=== PATIENT | male | born 1945 | race Caucasian/White ===

== ENCOUNTER 2018-03-14 13:28 | Observation (INO) ==
--- NOTE | 2018-03-14 13:34 | Emergency Department Note ---
Disposition Clinical Impression: Stroke syndrome Disposition: Admitted As Inpatient Condition: Good Referrals: Aquilino Mcclelland MD [Primary Care Provider] - Forms: ED Satisfaction Letter Time of Disposition: 15:00 Neuro HPI - General Chief Complaint: ED General Medical Stated Complaint: numbness to lt arm and side of face, onset 2 days Time Seen by Provider: 03/14/18 13:32 Source: patient, family Mode of arrival: private vehicle Limitations: no limitations Nursing Notes Reviewed: Yes Vital Signs Reviewed: Yes - History of Present Illness HPI Narrative: Patient relates that he has had onset of some tingling and numbness in his left face and left arm sometime on Sunday. States he did have a fall onto his back on Sunday but that he did not hit his head. He states he merely tripped. He is continued with constant dysesthesia to the arm and face but is not extended anywhere to the torso or lower extremities. He denies any problem like this before. Denies alteration in vision, speech, thought or balance. He denies any lower extremity complaints other than his chronic neuropathy. He denies headache, nausea or vomiting. Denies chest pain, palpitations or any abnormal shortness of breath. He states he always has some shortness of breath with his COPD. He denies significant change in medicines other than he had an increase of his Trulicity. He states his blood sugars have been in the 100s to low 200s and that that is good for him. He is on an aspirin a day but denies any other anticoagulants. Denies any previous episodes of a type of stroke or TIA. He has not had any previous vascular/carotid exam in the past. Symptom Onset Unknown: No Timing confirmed by: family member Location: left face, left arm History of same: No Severity: mild Quality: tingling, constant Symptoms Improving: No Improves with: none Worsens with: none Context: gradual onset On Anticoagulants: No Associated symptoms: Denies: confusion, chest pain, cough, diaphoresis, fever/ chills, headaches, loss of appetite, malaise, nausea/vomiting, vertigo, seizures , shortness of breath, syncope, weakness Treatments Prior to Arrival: none - Related Data Home Medications: Home Medications Medication Instructions Recorded Confirmed Losartan [Cozaar] 25 mg PO DAILY 10/16/16 03/14/18 Albuterol Sulfate [Ventolin Hfa] 18 gm IH BID 03/14/18 03/14/18 Aspirin [Adult Aspirin Regimen] 81 mg PO DAILY 03/14/18 03/14/18 Budesonide/Formoterol 160/4.5 2 puff IH BIDR 03/14/18 03/14/18 [Symbicort 160/4.5] Cholecalciferol (Vitamin D3) 50,000 unit PO QWEEK 03/14/18 03/14/18 [Vitamin D] Dulaglutide [Trulicity] 1.5 mg SQ QWEEK 03/14/18 03/14/18 Gabapentin [Neurontin] 800 mg PO TID 03/14/18 03/14/18 GlipiZIDE XL (24 HR) [Glucotrol XL] 10 mg PO BID 03/14/18 03/14/18 Hydrocodone/Acetaminophen 1 each PO Q6H PRN 03/14/18 03/14/18 [Hydrocodon-Acetaminophen 5-325] Insulin Glargine [Lantus] 95 unit SQ DAILY 03/14/18 03/14/18 Isosorbide MONOnitrate (24 HR) 60 mg PO DAILY 03/14/18 03/14/18 [Imdur] Omeprazole [PriLOSEC] 40 mg PO DAILY 03/14/18 03/14/18 Simvastatin [Zocor] 40 mg PO HS 03/14/18 03/14/18 metFORMIN [Glucophage] 1,000 mg PO BIDWM 03/14/18 03/14/18 Previous Rx's Medication Instructions Recorded Levothyroxine [Synthroid] 50 mcg PO DAILY #30 tablet 05/20/17 Allergies/Adverse Reactions: Allergies Allergy/AdvReac Type Severity Reaction Status Date / Time niacin AdvReac Cramping Verified 03/14/18 13:30 of the Muscles All systems ED: reviewed and negative except as stated. Past Medical History - Past Medical History Attestation: Yes The following information was validated with the patient. Source: patient, obtained from family, nursing notes reviewed Medical history: Reports: COPD, diabetes, GERD (Hiatal hernia), hyperlipidemia, hypertension, thyroid disease (Hypothyroid), other (Elevated BMI, anemia, blind in the right eye, chronic low back pain) Surgical history: Reports: cataract, knee replacement (Bilateral), orthopedic, other (Carpal tunnel and trigger finger releases) Psychiatric history: Reports: no psych history - Social History Smoking Status: Never smoker Smokeless Tobacco Status: No Alcohol use: Reports: none Drug use: Reports: none Physical Exam - General Limitations: no limitations General appearance: alert, in no apparent distress - Head Head exam: atraumatic, normocephalic, normal inspection - Eye Eye exam: Present: normal appearance, PERRL, EOMI. Absent: conjunctival injection, nystagmus, miosis, mydriasis - ENT ENT exam: normal exam, normal oropharynx, mucous membranes moist - Neck Neck exam: Present: normal inspection, full ROM, trachea midline - Chest Chest inspection: Present: normal inspection, symmetric chest wall rise - Respiratory Respiratory exam: Present: normal lung sounds bilaterally. Absent: respiratory distress, wheezes, prolonged expiratory phase - Cardiovascular Cardiovascular exam: Present: regular rate, normal rhythm, normal heart sounds. Absent: tachycardia - Abdominal Exam Abdominal exam: Present: soft, Non-Tender, normal bowel sounds. Absent: tenderness, distention, guarding, rebound, rigidity - Extremities Exam Extremities exam: Present: normal inspection, full ROM, normal capillary refill. Absent: tenderness, pedal edema, calf tenderness - Expanded Lower Extremity Exam Neurovascular/Tendon exam: Present: normal capillary refill. Absent: motor deficit, sensory deficit, tendon deficit Gait: observed and normal - Back Exam Back exam: Present: normal inspection, full ROM. Absent: tenderness - Neurological Exam Neurological exam: Present: alert, oriented X3, CN II-XII intact, normal gait, reflexes normal. Absent: motor sensory deficit (Patient has equal strength and rapid alternating motion with his hands. He does not have a pronator drift positive. He does report a dysesthesia to his left face and left arm.) - Psychiatric Psychiatric exam: Present: normal affect, normal mood. Absent: agitated, anxious - Skin Skin exam: Present: warm, dry, intact, normal color. Absent: diaphoresis, pallor Course Course Narrative: 1500: All testing is been discussed with the patient and family. He is agreeable to observation at this facility for further testing. I have discussed care with Dr. Soriano like him started on Plavix a day in addition to his aspirin. Verbal orders have been obtained for his observation and orders for echocardiogram and carotid Dopplers have been entered. Patient remains in stable condition without any further neurologic complaints or findings. Vital Signs Temperature 98.3 F 08/30/18 13:33 Pulse Rate 76 03/14/18 13:33 Respiratory Rate 18 03/14/18 13:33 Blood Pressure 136/71 03/14/18 13:33 O2 Sat by Pulse Oximetry 95 03/14/18 13:33 Temperature 98.3 F 03/14/18 13:33 Pulse Rate 66 03/14/18 14:44 Respiratory Rate 18 03/14/18 14:44 Blood Pressure 134/72 03/14/18 14:44 O2 Sat by Pulse Oximetry 95 03/14/18 14:44 Oxygen Delivery Oxygen Delivery Room Air Neuro Symptoms/Deficit - Differential Diagnosis Likely: cerebrovascular accident - Medical Records Medical records reviewed: Yes I reviewed the patient's medical records. - Lab Data Lab results reviewed: Yes I reviewed the patient's lab results. Result diagrams: 03/14/18 13:46 03/14/18 13:46 Lab Results 03/14/18 03/14/18 03/14/18 Range/Units 13:46 13:46 13:46 WBC 8.0 (4.3-11.1) K/mcL RBC 4.18 L (4.19-5.50) M/mcL Hgb 9.9 L (12.9-16.9) g/dL Hct 31.9 L (37.5-50.1) % MCV 76.3 L (83.0-100.0) fL MCH 23.7 L (28.0-33.3) pg MCHC 31.0 L (31.6-35.5) g/dL RDW 17.2 H (11.5-14.5) % Plt Count 185 (140-400) K/mcL MPV 10.4 (9.4-12.4) fL Immature Gran % 0.7 (0-4) % Seg Neutrophils % 67.0 % Lymphocytes % 22.4 % Monocytes % 7.2 % Eosinophils % 2.1 % Basophils % 0.6 % Neutrophils # 5.4 (1.6-8.9) K/mcL Lymphocytes # 1.8 (0.6-4.6) K/mcL Monocytes # 0.6 (0.0-1.3) K/mcL Eosinophils # 0.2 (0.0-0.6) K/mcL Basophils # 0.1 (0.0-0.2) K/mcL PT 11.4 (9.4-12.1) Seconds INR 1.0 APTT 28.6 (26.0-36.0) Seconds Sodium 134 L (136-145) mEq/L Potassium 4.0 (3.5-5.1) mEq/L Chloride 101 (98-107) mEq/L Carbon Dioxide 26 (23-29) mEq/L BUN 13 (8-23) mg/dL Creatinine 1.30 (0.70-1.30) mg/dL Est GFR ( Amer) > 60 (> 60) Est GFR (Non-Af Amer) 54 L (> 60) BUN/Creatinine Ratio 10 (6-26) Glucose 229 H (70-105) mg/dL Calculated Osmolality 285 (280-300) Calcium 8.9 (8.6-10.3) mg/dL Troponin I < 0.03 (< 0.04) ng/mL - Radiology Data Radiology results reviewed: Yes I reviewed the patient's radiology results. CT head is performed. This is reviewed on bone and soft tissue windows. There is no evidence for acute intracranial bleed, shift, mass or edema. Mastoids and sinuses appear normal. There is no fracture evident. This is on my interpretation. Impressions Head CT 03/14/18 13:33 IMPRESSION: No acute intracranial abnormality. D/ / Domonique Hardy MD / Domonique Hardy MD Interpreting Provider: Domonique Hardy MD - EKG Data EKG attestation: Yes I reviewed and interpreted this EKG. EKG shows normal: sinus rhythm, axis, intervals, QRS complexes Rate: normal (74) Q waves: v3, v4, v5, v6 T wave inversions noted in: v1, v2, v3 Interpretation: other (Lateral ST and T-wave changes concerning for ischemia and this is new from 05/20/2017.) TPA Checklist - LKW: 3-4.5 hrs Add. Warnings/Precautions Patient/family understanding: The patient/family members have been counseled and understood the risk, benefit , and alternatives of treatment.
[2018-03-14 13:55] LABS: Basophils # 0.1 K/mcL (0.0-0.2); Basophils % 0.6 %; Eosinophils # 0.2 K/mcL (0.0-0.6); Eosinophils % 2.1 %; Hematocrit 31.9 % (37.5-50.1); Hemoglobin 9.9 g/dL (12.9-16.9); Immature Granulocytes % 0.7 % (0-4); Lymphocytes # 1.8 K/mcL (0.6-4.6); Lymphocytes % 22.4 %; Mean Corpuscular Hemoglobin 23.7 pg (28.0-33.3); Mean Corpuscular Volume 76.3 fL (83.0-100.0); Mean Platelet Volume 10.4 fL (9.4-12.4); Monocytes # 0.6 K/mcL (0.0-1.3); Monocytes % 7.2 %; Neutrophils # 5.4 K/mcL (1.6-8.9); Platelet Count 185 K/mcL (140-400); Red Blood Count 4.18 M/mcL (4.19-5.50); Red Cell Distribution Width 17.2 % (11.5-14.5)
[2018-03-14 14:01] LABS: Prothrombin Time 11.4 Seconds (9.4-12.1)
[2018-03-14 14:04] LABS: Activated Partial Thrombo Time 28.6 Seconds (26.0-36.0)
[2018-03-14 14:09] LABS: BUN/Creatinine Ratio 10 (6-26); Blood Urea Nitrogen 13 mg/dL (8-23); Calcium 8.9 mg/dL (8.6-10.3); Carbon Dioxide 26 mEq/L (23-29); Chloride 101 mEq/L (98-107); Glucose 229 mg/dL (70-105); Osmolality,Calculated 285 (280-300); Sodium 134 mEq/L (136-145); eGFR For Non-African Americans 54 (> 60)
[2018-03-14 14:13] LABS: Troponin I < 0.03 ng/mL (< 0.04)
[2018-03-14] MEDS ORDERED: Naloxone 0.4 MG/ML INJ IVP PRN (16:03)
[2018-03-14] MEDS ORDERED: Dextrose Gel 15 GM/37.5 ML TUBE PO PRN ×2 (16:03)
[2018-03-14] MEDS ORDERED: *HR* Dextrose 50 % in Water (Syg) 50 ML SYRINGE IVP PRN (16:03)
[2018-03-14] MEDS ORDERED: *HR* HYDROcodone/Acet 5/325 mg TABLET PO PRN (16:03)
[2018-03-14] MEDS ORDERED: D5% in Water 1,000 ML IVC PRN (16:03)
[2018-03-14] MEDS: *HR* Metformin 500 MG TABLET PO SCH (17:22)
[2018-03-14] MEDS: Insulin LISPRO 300 UNITS/3 ML VIAL SQ SCH (17:23)
[2018-03-14] MEDS: Gabapentin 400 MG CAPSULE PO SCH ×2 (17:58→21:56)
--- NOTE | 2018-03-14 20:32 | Internal Med History&Physical ---
Date of Encounter: 03/14/18 Time of Encounter: 19:55 Assessment and Plan (1) Acute focal neurological deficit Current visit: Yes Status: Acute Head CT unremarkable. Echocardiogram and carotid Doppler studies were ordered through emergency room. He has been started on Plavix in addition to home dose aspirin 81 mg daily. (2) CKD (chronic kidney disease) stage 3, GFR 30-59 ml/min Current visit: Yes Status: Acute Monitor renal indices as needed (3) Microcytic anemia Current visit: Yes Status: Acute Order anemia testing in a.m. (4) DM type 2 (diabetes mellitus, type 2) Current visit: Yes Status: Acute Hemoglobin A1c was 9.6% on 09/20/2017. Recheck in a.m. Continue Glucophage and Glucotrol. 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 insulin use: without long term care administrator use Diabetes mellitus complication status: with kidney complications Diabetes mellitus complication detail: with chronic kidney disease Chronic kidney disease stage : stage 3 (moderate) Qualified Code(s): E11.22 - Type 2 diabetes mellitus with diabetic chronic kidney disease; N18.3 - Chronic kidney disease, stage 3 ( moderate) (5) Hypertension Current visit: Yes Status: Chronic Continue Cozaar Qualifiers: Hypertension type: essential hypertension Qualified Code(s): I10 - Essential (primary) hypertension (6) Hypothyroidism Current visit: Yes Status: Chronic TSH was 3.455 on 11/10/2017. Recheck in a.m. Qualifiers: Hypothyroidism type: unspecified Qualified Code(s): E03.9 - Hypothyroidism , unspecified Internal Medicine - H&P: HPI Chief complaint: Left face and arm numbness Admitted From: Emergency Dept Plans for Post Hospital Care: Home History of present illness: Mr. Poole is a 72 year old male who came to emergency room stating he had developed numbness in his left face and arm onset March 12. It had been almost constant since onset with no worsening during activity. He did not take medication other than his usual prescribed regimen. When he did not did not improve he became concerned so came to emergency room today. He was evaluated and admitted to [facility] floor for ongoing care needs. He denies previous similar episodes. He denies pain. Neurologic history is pertinent for diabetic peripheral neuropathy. He denies large distribution strokes, seizures, migraine headaches, or syncopal episodes. Past Med Surg Social Fam HX - Past Medical History Medical history: COPD, diabetes, GERD (Hiatal hernia), hyperlipidemia, hypertension, thyroid disease (Hypothyroid), other (Elevated BMI, anemia, blind in the right eye, chronic low back pain) Additional medical history: vertigo. bells palsy. neuropathy Psychiatric history: no psych history - Past Surgical History Surgical History: cataract, knee replacement (Bilateral), orthopedic, other ( Carpal tunnel and trigger finger releases) Additional surgical history: Bilat total knee replacement. Trigger finger 3 fingers. Right carpal tunnel - Social History Smoking Status: Never smoker Smokeless Tobacco Status: No Alcohol use: none Drug use: none Internal Medicine - H&P: Meds Losartan [Cozaar] 25 mg PO DAILY 10/16/16 [History] Levothyroxine [Synthroid] 50 mcg PO DAILY #30 tablet 05/20/17 [Rx] Albuterol Sulfate [Ventolin Hfa] 18 gm IH BID 03/14/18 [History] Aspirin [Adult Aspirin Regimen] 81 mg PO DAILY 03/14/18 [History] Budesonide/Formoterol 160/4.5 [Symbicort 160/4.5] 2 puff IH BIDR 03/14/18 [ History] Cholecalciferol (Vitamin D3) [Vitamin D] 50,000 unit PO QWEEK 03/14/18 [History] Dulaglutide [Trulicity] 1.5 mg SQ QWEEK 03/14/18 [History] Gabapentin [Neurontin] 800 mg PO TID 03/14/18 [History] GlipiZIDE XL (24 HR) [Glucotrol XL] 10 mg PO BID 03/14/18 [History] Hydrocodone/Acetaminophen [Hydrocodon-Acetaminophen 5-325] 1 each PO Q6H PRN [History] Insulin Glargine [Lantus] 95 unit SQ DAILY 03/14/18 [History] Isosorbide MONOnitrate (24 HR) [Imdur] 60 mg PO DAILY 03/14/18 [History] Omeprazole [PriLOSEC] 40 mg PO DAILY 03/14/18 [History] Simvastatin [Zocor] 40 mg PO HS 03/14/18 [History] metFORMIN [Glucophage] 1,000 mg PO BIDWM 03/14/18 [History] 3 Allergy/AdvReac Type Severity Reaction Status Date / Time niacin AdvReac Cramping Verified 03/14/18 13:30 of the Muscles All Systems PM: A 10-system review of systems was performed and is negative for pertinent findings except as documented above in the HPI. Review of systems: Gen.: He states his weight has been stable the past few months Cardiovascular: He has history of hypertension. He denies CO heart failure angina DVT or pulmonary embolus. Echocardiogram 02/02/2016 showed LVEF 60% with no significant valvular dysfunction. The interventricular septum and posterior wall thickness measurements were 1.40 and 1.10 cm respectively. There was slight LAE at 4.10 cm. Respiratory: He smoked from approximately age [age] up to 2 packs per day. He claims diagnosis of COPD although PFTs October 2017 showed FEV1/FVC of 76%. FVC was 82%. MVV was 61%. He does not use home oxygen. He was diagnosed with UNA but states he could not tolerate CPAP which was ordered. GI: He denies disorders of his liver gallbladder or exocrine pancreas. Reports EGD and colonoscopy done several years ago did not show significant pathology. : He has chronic kidney disease stage III and follows with a [facility] attendant. He denies other kidney bladder or prostate disorders. Neurologic: As per history of present illness Endocrine: He was diagnosed with DM 2 approximately 2008. He has hyperlipidemia and hypothyroidism. Hematology/oncology: He denies blood disorders or cancers. He has had anemia with iron deficiency in the past. Psychiatric: He denies anxiety depression or other mental health issues. [place] skeletal: He has had remote bilateral total knee replacements and trigger finger surgery on several fingers of his right hand. He has chronic low back pain. - Constitutional Vitals: Temp Pulse Resp BP Pulse Ox 97.7 F 71 15 140/75 95 03/14/18 18:39 03/14/18 18:39 03/14/18 18:39 03/14/18 18:39 03/14/18 18:39 Exam: Gen.: He is a well-developed obese male lying in bed who appears in no acute distress at present time. HEENT: Head is atraumatic and normocephalic. Eyes: EOMI. There is no scleral icterus. Mouth: Mucosa is moist. Neck: Supple and nontender. There is no thyromegaly or adenopathy noted. Heart: Regular without murmurs gallops or ectopics. Lungs: No wheezes or crackles are heard. Abdomen: Soft and nontender. No masses or guarding are noted. Extremities: There is no cyanosis edema or clubbing noted. Dorsalis pedis and posterior tibial pulses are trace to 1+ palpable bilaterally. Neurologic: Mental status: He is talkative and a good historian. Cranial nerves : Smile is symmetric. Forehead wrinkles bilaterally. Tongue protrudes midline. EOMI. Motor: There is no pronator drift. Cerebellar: Finger to nose is intact bilaterally. Skin: Warm and dry Internal Med - H&P Results - Labs CBC & Chem 7: 03/14/18 13:46 03/14/18 13:46
[2018-03-14] MEDS ORDERED: Insulin DETEMIR 100 UNIT/ML X5UNITS SQ SCH (21:00)
[2018-03-14] MEDS: Budesonide/Formoterol 160/4.5 1 PUFF INH IH SCH (21:05)
[2018-03-14] MEDS: *HR* GlipiZIDE XL (24 HR) 10 MG TABLET PO SCH (21:55)
[2018-03-15 06:35] LABS: Basophils # 0.1 K/mcL (0.0-0.2); Basophils % 0.6 %; Eosinophils # 0.2 K/mcL (0.0-0.6); Eosinophils % 2.5 %; Hematocrit 32.6 % (37.5-50.1); Immature Granulocytes % 0.6 % (0-4); Lymphocytes # 1.7 K/mcL (0.6-4.6); Lymphocytes % 20.3 %; Mean Corpuscular HGB Conc 30.7 g/dL (31.6-35.5); Mean Corpuscular Hemoglobin 23.5 pg (28.0-33.3); Mean Corpuscular Volume 76.7 fL (83.0-100.0); Mean Platelet Volume 10.4 fL (9.4-12.4); Monocytes # 0.7 K/mcL (0.0-1.3); Monocytes % 8.4 %; Neutrophils # 5.5 K/mcL (1.6-8.9); Platelet Count 198 K/mcL (140-400); Red Blood Count 4.25 M/mcL (4.19-5.50); Red Cell Distribution Width 17.2 % (11.5-14.5); Segmented Neutrophils % 67.6 %
[2018-03-15 06:55] LABS: Magnesium 1.9 mg/dL (1.6-2.6)
[2018-03-15 07:21] LABS: Thyroid Stimulating Hormone 5.037 mcIU/mL (0.340-5.600)
[2018-03-15] MEDS: *HR* GlipiZIDE XL (24 HR) 10 MG TABLET PO SCH (08:21)
[2018-03-15] MEDS: Gabapentin 400 MG CAPSULE PO SCH (08:21)
[2018-03-15] MEDS: *HR* Metformin 500 MG TABLET PO SCH (08:21)
[2018-03-15] MEDS ORDERED: Isosorbide MONOnitrate (24 HR) 60 MG TAB.ER.24H PO SCH (09:00)
[2018-03-15] MEDS ORDERED: INSULIN GLARGINE SQ SCH (09:00)
[2018-03-15] MEDS ORDERED: Aspirin Enteric Coated 81 MG Tablet PO SCH (09:00)
[2018-03-15] MEDS ORDERED: Cholecalciferol (D-3) 1,000 UNIT TABLET PO SCH (09:00)
[2018-03-15 09:52] LABS: Folate 15.4 ng/mL (3.0-16.0)
[2018-03-15] MEDS: Insulin LISPRO 300 UNITS/3 ML VIAL SQ SCH ×2 (10:02→13:10)
[2018-03-15 10:16] LABS: Estimated Average Glucose 192 mg/dl; Hemoglobin A1C 8.3 %
[2018-03-15] MEDS: Budesonide/Formoterol 160/4.5 1 PUFF INH IH SCH (10:28)
--- NOTE | 2018-03-15 15:13 | Discharge Summary ---
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 buttermilk drier operator use Diabetes mellitus complication status: with kidney complications Diabetes mellitus complication detail: with chronic kidney disease Chronic kidney disease stage : stage 3 (moderate) Qualified Code(s): E11.22 - Type 2 diabetes mellitus with diabetic chronic kidney disease; N18.3 - Chronic kidney disease, stage 3 ( moderate) (5) Hypertension Priority: Secondary Status: Chronic Qualifiers: Hypertension type: essential hypertension Qualified Code(s): I10 - Essential (primary) hypertension (6) Hypothyroidism Priority: Secondary Status: Chronic Qualifiers: Hypothyroidism type: unspecified Qualified Code(s): E03.9 - Hypothyroidism , unspecified Hospital course: Mr. Poole is a 72 year old male who came to emergency room stating he had developed numbness in his left face and arm onset March 12. It had been almost constant since onset with no worsening during activity. He did not take medication other than his usual prescribed regimen. When he did not did not improve he became concerned so came to emergency room today. He was evaluated and admitted to [facility] floor for ongoing care needs. Initial orders were written by the emergency room physician. I saw him on March 14 and performed a history and physical. Head CT in emergency room was unremarkable. Carotid ultrasound and echocardiogram were ordered through emergency room. Preliminary reports by the test cell technician were that no significant pathology was seen on either study. His PCP Dr. Mcclelland can obtain final reports for verification. He was given a Plavix on admission and aspirin was continued. He reported there was no change in his facial numbness when I saw him on March 15. I told him this could be neurogenic etiology from cervical spinal nerve. I gave him prednisone 10 mg twice a day for 5 days. NSAIDs will not be used because of azotemia and anemia. His PCP can order further workup as needed. Anemia testing showed iron 31, transferrin saturation 8%, transferrin 293, ferritin 12, B12 429, and folate 15.4. He will start ferrous sulfate with vitamin C. Omeprazole will be discontinued to facilitate absorption. TSH returned normal at 5.037. On March 15 he wished to be discharged home. He will follow with his PCP Dr. Mcclelland within 1 week. - Time Spent with Patient Total time spent providing and/or coordinating discharge services: - Discharge Medications Prescriptions: Ascorbic Acid [Vitamin C] 500 mg PO DAILY #30 tablet Ferrous Sulfate 325 mg PO DAILY #30 tablet predniSONE [PredniSONE] 10 mg PO BIDWM #10 tablet Home Medications: Losartan [Cozaar] 25 mg PO DAILY 10/16/16 [History] Levothyroxine [Synthroid] 50 mcg PO DAILY #30 tablet 05/20/17 [Rx] Albuterol Sulfate [Ventolin Hfa] 18 gm IH BID 03/14/18 [History] Aspirin [Adult Aspirin Regimen] 81 mg PO DAILY 03/14/18 [History] Budesonide/Formoterol 160/4.5 [Symbicort 160/4.5] 2 puff IH BIDR 03/14/18 [ History] Cholecalciferol (Vitamin D3) [Vitamin D3] 50,000 unit PO QWEEK 03/14/18 [History ] Dulaglutide [Trulicity] 1.5 mg SQ QWEEK 03/14/18 [History] Gabapentin [Neurontin] 800 mg PO TID 03/14/18 [History] GlipiZIDE XL (24 HR) [Glucotrol XL] 10 mg PO BID 03/14/18 [History] Hydrocodone/Acetaminophen [Hydrocodon-Acetaminophen 5-325] 1 each PO Q6H PRN [History] Insulin Glargine [Lantus] 95 unit SQ DAILY 03/14/18 [History] Isosorbide MONOnitrate (24 HR) [Imdur] 60 mg PO DAILY 03/14/18 [History] Simvastatin [Zocor] 40 mg PO HS 03/14/18 [History] metFORMIN [Glucophage] 1,000 mg PO BIDWM 03/14/18 [History] Ascorbic Acid [Vitamin C] 500 mg PO DAILY #30 tablet 03/15/18 [Rx] Ferrous Sulfate 325 mg PO DAILY #30 tablet 03/15/18 [Rx] predniSONE [PredniSONE] 10 mg PO BIDWM #10 tablet 03/15/18 [Rx] Allergies/Adverse Reactions: 3 Allergy/AdvReac Type Severity Reaction Status Date / Time niacin AdvReac Cramping Verified 03/14/18 13:30 of the Muscles Date of admission: 03/14/18 15:30 Primary care physician: Aquilino Mcclelland MD - Constitutional Vitals: Temp Pulse Resp BP Pulse Ox 98.1 F 76 16 139/70 95 03/15/18 11:22 03/15/18 11:22 03/15/18 11:22 03/15/18 11:22 03/15/18 11:22 - Patient Status Disposition: Home, Self-Care Condition: Good - Discharge Instructions Follow Up With: Aquilino Mcclelland MD [Primary Care Provider] - 1 week - Diet and Activity Activity: resume usual activities as tolerated Diet: diabetic diet
[2018-03-15 15:21] VITALS: BP 131/76
[2018-03-16] MEDS ORDERED: (Dulaglutide [Trulicity] 1.5 MG) SQ SCH (09:00)
[2018-03-16] MEDS ORDERED: Cholecalciferol (D-3) 1,000 UNIT TABLET PO SCH (09:00)
--- NOTE | 2018-03-18 12:20 | Electrocardiograph Report ---
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
== END 2018-03-15 15:49 | disposition home or self-care (01) ==
LOC: INPPIK 13:28 → EMEROOPIK 13:28 → INPPIK 15:50
PROVIDERS: ADMIT Internal Medicine; ATTEND Internal Medicine